=== PATIENT | female | born 1975 | race Caucasian/White ===

== ENCOUNTER 2021-02-20 13:08 | Emergency (ER) | payer OTHER, SELFPAY ==
[2021-02-20 13:25] VITALS: BP 142/74; PULSE 87; RESP 22; TEMP 36.5; O2SAT 96
[2021-02-20 13:47] VITALS: BP 142/74; PULSE 87; RESP 22; TEMP 36.5; O2SAT 96
--- NOTE | 2021-02-20 14:05 | ED.URI ---
HPI - URI/Sore Throat General Chief Complaint: Upper Respiratory Infection Stated Complaint: sinus infection Time Seen by Provider: 02/20/21 13:43 Source: patient and RN notes reviewed Mode of arrival: ambulatory Limitations: no limitations History of Present Illness HPI Narrative: Patient presents today with a 2-day history of nasal congestion, sinus pressure, rhinorrhea, productive cough, headache, chills and sweats with subjective fever, sore throat, shortness of breath. Patient has history of emphysema with chronic cough and states her cough is just much worse than it normally is. She does have a rescue inhaler that she uses as well as a nebulizer machine with albuterol, which do help for short periods of time. She has also taken 1 dose of Tylenol yesterday that helped slightly with her headache. Denies diarrhea, loss of taste or smell. She last vomited yesterday morning and has been able to keep down fluids since then. She has not tried to eat. MD elicited complaint: cough Related Data Home Medications Medication Instructions Recorded Confirmed albuterol sulfate 2 puff INHALATION Q4H PRN 02/20/21 02/20/21 cetirizine 10 mg PO DAILY 02/20/21 02/20/21 ergocalciferol (vitamin D2) 1,250 mcg PO WEEKLY 02/20/21 02/20/21 [Vitamin D2] hydroxyzine HCl 25 mg PO TID 02/20/21 02/20/21 naloxone [Narcan] 4 mg INTRANASAL PRN PRN 02/20/21 02/20/21 sertraline 50 mg PO DAILY 02/20/21 02/20/21 Allergies Allergy/AdvReac Type Severity Reaction Status Date / Time No Known Allergies Allergy Verified 02/20/21 13:46 Review of Systems Review of Systems: Narrative: CONSTITUTIONAL: + Body aches, chills, sweats, subjective fever EYES: Denies visual changes, redness, or discharge. ENT: + Congestion, rhinorrhea, sinus pressure, headache, right ear pain CARDIOVASCULAR: Denies chest pain, palpitations, or edema. RESPIRATORY: + Productive cough, shortness of breath GASTROINTESTINAL: Denies abdominal pain, diarrhea.+ Nausea and vomiting GENITOURINARY: Denies dysuria or hematuria. SKIN: Denies rash, itching, or wounds. MUSCULOSKELETAL: Denies back pain, joint pain, or myalgia. NEUROLOGIC: Denies numbness, tingling, or weakness.+ Headache PSYCH: Denies depression or anxiety. [facility] Past Medical History Medical History (Updated 02/20/21 @ 14:12 by Rianna Lynn, KNUCKLE BENDER, ) COPD (chronic obstructive pulmonary disease) Comments At time of signature, I have reviewed and agree with nursing past medical, surgical, social and family history unless otherwise noted. Please see nursing chart for further information. There is no relevant family history pertinent to the presenting complaint Exam Narrative: Exam Narrative: GENERAL: No-appearing, well-nourished, and in no acute distress. HEAD: Normocephalic, atraumatic. EYES: EOMI. No redness or drainage. Conjunctivae normal. ENT: Mucous membranes pink and moist. Nares congested. No rhinorrhea. Left TM normal. Right TM injected and bulging. Throat normal. Uvula midline. NECK: Normal AROM. Supple. No lymphadenopathy. CHEST: No respiratory distress. Decreased aeration throughout. No wheezing or rhonchi noted. Deep breaths elicit coughing episodes. HEART: Regular rate and rhythm. No murmur appreciated. Normal peripheral pulses. EXTREMITIES: Normal range of motion. No edema. SKIN: Warm, dry, no rash. Capillary refill normal. Normal skin turgor. NEURO: No focal deficits. Alert and oriented x3. Gait steady. PSYCH: Normal affect. No signs of depression or anxiety. Course Vital Signs Vital signs: Vital Signs Temperature 97.7 F 02/20/21 13:25 Pulse Rate 87 02/20/21 13:25 Respiratory Rate 22 H 02/20/21 13:25 Blood Pressure 142/74 H 02/20/21 13:25 Pulse Oximetry 96 02/20/21 13:25 Temperature 97.7 F 02/20/21 13:47 Pulse Rate 87 02/20/21 13:47 Respiratory Rate 22 H 02/20/21 13:47 Blood Pressure 142/74 H 02/20/21 13:47 Pulse Oximetry 96 02/20/21 13:47 Revie
[2021-02-21 19:39] LABS: SARS-CoV-2 RNA PCR Negative
== END 2021-02-20 14:15 | disposition home or self-care (01) ==
PROVIDERS: Emergency Provider Nurse Practitioner
DX: J44.1 Chronic obstructive pulmonary disease with (acute) exacerbation (principal); H66.91 Otitis media, unspecified, right ear; J06.9 Acute upper respiratory infection, unspecified; Z20.822 Contact with and (suspected) exposure to COVID-19
CPT/HCPCS: 87426; 99213; C9803; G0463; U0003; U0005

== ENCOUNTER 2021-03-12 17:50 | Emergency (ER) | payer OTHER, SELFPAY ==
--- NOTE | ~2021-03-12 | XR_ITS ---
EXAMINATION: XR toe 3rd RT min 2V DATE: 03/12/2021 18:47 INDICATION: Right third toe injury. TECHNIQUE: 3 views of right third toe were obtained. COMPARISON: None. FINDINGS: There is a nondepressed comminuted fracture of head of third proximal phalanx. Joint spaces are normal. IMPRESSION: 1. Nondisplaced comminuted fracture of head of third proximal phalanx. Reviewed, dictated and finalized at location A.
[2021-03-12 18:20] VITALS: BP 131/79; PULSE 70; RESP 18; TEMP 36.7; O2SAT 98
--- NOTE | 2021-03-12 18:57 | ED.LOWEXIN ---
HPI - Extremity Injury (Lower) General Chief Complaint: Extremity Injury, Lower Stated Complaint: third toe right foot injury Time Seen by Provider: 03/12/21 18:46 Source: patient, RN notes reviewed and police Mode of arrival: ambulatory Limitations: no limitations History of Present Illness HPI Narrative: 45-year-old female presents to express care with complaints of injury to her right third toe when she was climbing out of the foot of the bed and hit her toe on the wall 3 days ago.Patient has swelling and bruising to her right third toe with pain on palpation, She states that she has been taking Ibuprofen, Tylenol and Aspirin for her discomfort and has applied ice to her toe. Patient has increase pain with any attempt to move toe, denies any tingling or numbness to her toe or foot, no injury to her nail bed. MD complaint: other (hit the wall) Onset (ago): day(s) (3) Injury: Right: toes (Right third) Related Data Home Medications Medication Instructions Recorded Confirmed cetirizine 10 mg PO DAILY 02/20/21 03/12/21 ergocalciferol (vitamin D2) 1,250 mcg PO WEEKLY 02/20/21 03/12/21 [Vitamin D2] hydroxyzine HCl 25 mg PO TID 02/20/21 03/12/21 sertraline 50 mg PO DAILY 02/20/21 03/12/21 mirtazapine 15 mg PO DAILY 03/12/21 03/12/21 Allergies Allergy/AdvReac Type Severity Reaction Status Date / Time No Known Allergies Allergy Verified 03/12/21 18:39 Review of Systems Review of Systems: Narrative: CONSTITUTIONAL: Denies fever, chills, or sweats. EYES: Denies visual changes, redness, or discharge. ENT: Denies rhinorrhea, congestion, sore throat, or otalgia. CARDIOVASCULAR: Denies chest pain, palpitations, or edema. RESPIRATORY: Denies cough or dyspnea. GASTROINTESTINAL: Denies abdominal pain, nausea, vomiting, or diarrhea. GENITOURINARY: Denies dysuria or hematuria. SKIN: Denies rash or itching. MUSCULOSKELETAL: Denies back pain, positive for pain right third toe joint pain, or myalgia. NEUROLOGIC: Denies headache, numbness, or weakness. PSYCHIATRIC: Denies anxiety or depression. All systems reviewed & are unremarkable except as noted in HPI and below PMFSH Past Medical History Medical History (Updated 03/17/21 @ 12:43 by Jo-Ann Dowling NP) Anxiety COPD (chronic obstructive pulmonary disease) Environmental allergies Surgical History Surgical History (Updated 03/17/21 @ 12:32 by Jo-Ann Dowilng NP) Previous section Family History Family History (Updated 03/17/21 @ 12:33 by Jo-Ann Dowling NP) Mother Hypertension Other Cerebrovascular accident Heart disease Hx of brain cancer Social History Social History (Updated 03/17/21 @ 12:37 by Jo-Ann Dowling NP) Smoking packs per day: 0.25 Smoking cigarettes per day: 5.0 Smoking status: Current every day smoker Tobacco type: cigarettes Alcohol intake: never Substance use: former Substance use type: methamphetamine Last use: 5 years Living arrangements: with family Gender identity (if verbalized by the patient): Female Comments At time of signature, agree with nursing past medical, surgical, social and family history. There is no relevant family history pertinent to the presenting complaint Exam Narrative: Exam Narrative: GENERAL: Well-appearing, well-nourished, and in no acute distress. HEAD: Normocephalic, atraumatic. EYES: PERRLA and EOMI. ENT: Nares clear, no rhinorrhea or epistaxis. Mucous membranes moist. NECK: Supple.no lymphadenopathy CHEST: Decreased to auscultation. No respiratory distress.SAO2 98% on room air HEART: Regular rate and rhythm. No murmur heard. Normal peripheral pulses. ABDOMEN: Soft, nontender, nondistended, normal active bowel sounds. EXTREMITIES: Normal range of motion. No edema.with exception to right third toe which is swollen and bruised, sensation and circulation is intact SKIN: Warm, dry, no rash. NEURO: No focal deficits. Alert and oriented x3. Course Vital Signs Vital s
== END 2021-03-12 19:25 | disposition home or self-care (01) ==
PROVIDERS: Emergency Provider Registered Nurse
DX: S92.514A Nondisplaced fracture of proximal phalanx of right lesser toe(s), initial encounter for closed fracture (principal); X58.XXXA Exposure to other specified factors, initial encounter; J44.9 Chronic obstructive pulmonary disease, unspecified
CPT/HCPCS: 73660; 99214; G0463

== ENCOUNTER 2021-06-21 18:25 | Emergency (ER) | payer OTHER, SELFPAY ==
--- NOTE | ~2021-06-21 | XR_ITS ---
EXAMINATION: XR chest 2V DATE: 06/21/2021 19:00 INDICATION: One week of cough and fatigue TECHNIQUE: frontal and lateral views of the chest were obtained. COMPARISON: None FINDINGS: The lungs are clear with no focal airspace opacities, pulmonary edema, pleural effusion or pneumothor ax. The cardiomediastinal silhouette is normal. 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 IMPRESSION: 1. No acute cardiopulmonary disease. 2. 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 Recommend dedicated righ t shoulder radiographs and correlation with any prior outside imaging. Reviewed, dictated and finalized at location A. IMPRESSION: 1. No acute cardiopulmonary disease. 2. 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 Re commend dedicated right shoulder radiographs and correlation with any prior out side imaging.
[2021-06-21 18:30] VITALS: BP 114/76; PULSE 85; RESP 18; TEMP 36.9; O2SAT 98
--- NOTE | 2021-06-21 18:52 | ED.URI ---
HPI - URI/Sore Throat General Chief Complaint: Upper Respiratory Infection Stated Complaint: Congestion, fatigue, vomitting, headache Time Seen by Provider: 06/21/21 18:37 Source: patient and RN notes reviewed Mode of arrival: ambulatory Limitations: no limitations History of Present Illness HPI Narrative: Patient presents today with a 10-day history of cough, sweats and chills, shortness of breath and wheezing, chest congestion, rhinorrhea, intermittent nausea and vomiting. Patient is also requesting a refill of her albuterol inhaler. She has been taking cough and congestion medication with some relief. History of COPD and asthma. Upon symptoms beginning she was using her inhaler very frequently and has run out. 2 days prior to patient's symptoms beginning, patient's daughter started with similar symptoms. Patient has had her COVID-19 vaccine. MD elicited complaint: cough and nasal congestion Related Data Home Medications Medication Instructions Recorded Confirmed cetirizine 10 mg PO DAILY 02/20/21 06/21/21 ergocalciferol (vitamin D2) 1,250 mcg PO WEEKLY 02/20/21 03/12/21 [Vitamin D2] hydroxyzine HCl 25 mg PO TID 02/20/21 06/21/21 sertraline 50 mg PO DAILY 02/20/21 03/12/21 mirtazapine 15 mg PO DAILY 03/12/21 03/12/21 bupropion HCl 100 mg PO BID 06/21/21 06/21/21 lamotrigine 25 mg PO DAILY 06/21/21 06/21/21 omeprazole 20 mg PO DAILY 06/21/21 06/21/21 Allergies Allergy/AdvReac Type Severity Reaction Status Date / Time No Known Allergies Allergy Verified 03/12/21 18:39 Review of Systems Review of Systems: CONSTITUTIONAL: Denies body aches, fever. + Chills and sweats EYES: Denies visual changes, redness, or discharge. ENT: Denies sore throat, or otalgia. + Congestion, rhinorrhea CARDIOVASCULAR: Denies chest pain, palpitations, or edema. RESPIRATORY: + Cough, shortness of breath, wheezing GASTROINTESTINAL: Denies abdominal pain, or diarrhea.+ Nausea and vomiting GENITOURINARY: Denies dysuria or hematuria. SKIN: Denies rash, itching, or wounds. MUSCULOSKELETAL: Denies back pain, joint pain, or myalgia. NEUROLOGIC: Denies headache, numbness, tingling, or weakness. PSYCH: Denies depression or anxiety. [facility] Past Medical History Medical History Anxiety COPD (chronic obstructive pulmonary disease) Environmental allergies Surgical History Surgical History Previous section Family History Family History Mother Hypertension Other Cerebrovascular accident Heart disease Hx of brain cancer Social History Social History Smoking packs per day: 0.25 Smoking cigarettes per day: 5.0 Smoking status: Current every day smoker Tobacco type: cigarettes Alcohol intake: never Substance use: former Substance use type: methamphetamine Last use: 5 years Gender identity (if verbalized by the patient): Female Comments At time of signature, I have reviewed and agree with nursing past medical, surgical, social and family history unless otherwise noted. Please see nursing chart for further information. There is no relevant family history pertinent to the presenting complaint Exam Narrative: GENERAL: Mildly ill-appearing, well-nourished, and in no acute distress. HEAD: Normocephalic, atraumatic. EYES: EOMI. No redness or drainage. Conjunctivae normal. ENT: Mucous membranes pink and moist. Nares congested. No rhinorrhea. TMs normal bilaterally. Throat normal. Uvula midline. NECK: Normal AROM. Supple. No lymphadenopathy. CHEST: No respiratory distress. Inspiratory and expiratory wheezes throughout. Diminished in the bilateral bases HEART: Regular rate and rhythm. No murmur appreciated. Normal peripheral pulses. EXTREMITIES: Normal range of motion.
== END 2021-06-21 19:55 | disposition home or self-care (01) ==
PROVIDERS: Emergency Provider Nurse Practitioner
DX: J40 Bronchitis, not specified as acute or chronic (principal); Z20.822 Contact with and (suspected) exposure to COVID-19; F41.9 Anxiety disorder, unspecified; J44.9 Chronic obstructive pulmonary disease, unspecified; F17.210 Nicotine dependence, cigarettes, uncomplicated
CPT/HCPCS: 71046; 87426; 99213; C9803; G0463

== ENCOUNTER 2021-09-13 13:10 | Emergency (ER) | payer OTHER, SELFPAY ==
--- NOTE | ~2021-09-13 | XR_ITS ---
EXAMINATION: XR chest 2V DATE: 09/13/2021 13:45 INDICATION: Cough. Diminished breath sounds. TECHNIQUE: PA and lateral views of the chest were obtained. COMPARISON: Chest radiograph dated 06/21/2021 FINDINGS: The lungs remain clear with no focal airspace opacities, pulmonary edema, pleural effusion or pneumot horax. The cardiomediastinal silhouette is normal. Mild thoracic spondylosis. IMPRESSION: 1. No acute cardiopulmonary disease. Reviewed, dictated and finalized at location A.
[2021-09-13 13:24] VITALS: BP 132/75; PULSE 91; RESP 14; TEMP 37.1; O2SAT 96
--- NOTE | 2021-09-13 13:38 | ED.URI ---
HPI - URI/Sore Throat General Chief Complaint: Upper Respiratory Infection Stated Complaint: Cough Time Seen by Provider: 09/13/21 13:38 Source: patient and family History of Present Illness HPI Narrative: patient presents with a cough. no chest pain and no shortness of breath. cough and sinus congestion for the past week and half. no fever no other complains. MD elicited complaint: cough Related Data Home Medications Medication Instructions Recorded Confirmed sertraline 50 mg PO DAILY 02/20/21 09/13/21 bupropion HCl 100 mg PO BID 06/21/21 09/13/21 hydroxyzine HCl 1 mg PO QID 09/13/21 09/13/21 quetiapine 1 mg PO DAILY 09/13/21 09/13/21 Allergies Allergy/AdvReac Type Severity Reaction Status Date / Time No Known Allergies Allergy Verified 09/13/21 13:40 Review of Systems Review of Systems: CONSTITUTIONAL: Denies fever, chills, or sweats. EYES: Denies visual changes, redness, or discharge. ENT: Denies rhinorrhea, congestion, sore throat, or otalgia. CARDIOVASCULAR: Denies chest pain, palpitations, or edema. RESPIRATORY: Denies cough or dyspnea. GASTROINTESTINAL: Denies abdominal pain, nausea, vomiting, or diarrhea. GENITOURINARY: Denies dysuria or hematuria. SKIN: Denies rash or itching. MUSCULOSKELETAL: Denies back pain, joint pain, or myalgia. NEUROLOGIC: Denies headache, numbness, or weakness. PSYCHIATRIC: Denies anxiety or depression. [facility] Past Medical History Medical History Anxiety COPD (chronic obstructive pulmonary disease) Environmental allergies Surgical History Surgical History Previous section Family History Family History Mother Hypertension Other Cerebrovascular accident Heart disease Hx of brain cancer Social History Social History Smoking packs per day: 0.25 Smoking cigarettes per day: 5.0 Smoking status: Current every day smoker Tobacco type: cigarettes Alcohol intake: never Substance use: former Substance use type: methamphetamine Last use: 5 years Gender identity (if verbalized by the patient): Female Comments At time of signature, agree with nursing past medical, surgical, social and family history. There is no relevant family history pertinent to the presenting complaint Exam Narrative: GENERAL: Well-appearing, well-nourished, and in no acute distress. HEAD: Normocephalic, atraumatic. EYES: PERRLA and EOMI. ENT: Nares clear, no rhinorrhea or epistaxis. Mucous membranes moist. NECK: Supple. CHEST: Clear to auscultation. No respiratory distress. Lung sounds diminished throughout all 4 lobes HEART: Regular rate and rhythm. No murmur heard. Normal peripheral pulses. ABDOMEN: Soft, nontender, nondistended, normal active bowel sounds. EXTREMITIES: Normal range of motion. No edema. SKIN: Warm, dry, no rash. NEURO: No focal deficits. Alert and oriented x3. Hawley Coma Scale Eye Opening: Spontaneous 4 Hawley Coma Scale Motor: Obeys Commands 6 Hawley Coma Scale Verbal: Oriented 5 Hawley Coma Scale Total 15 Course Vital Signs Vital signs: Vital Signs Temperature 37.1 C 09/13/21 13:24 Pulse Rate 91 09/13/21 13:24 Respiratory Rate 14 09/13/21 13:24 Blood Pressure 132/75 09/13/21 13:24 Pulse Oximetry 96 09/13/21 13:24 Temperature 37.1 C 09/13/21 13:24 Pulse Rate 91 09/13/21 13:24 Respiratory Rate 14 09/13/21 13:24 Blood Pressure 132/75 09/13/21 13:24 Pulse Oximetry 96 09/13/21 13:24 Addressed elevated BP today. Today's blood pressure higher than recommended range. Discussed importance of follow -up with PCP and possible supervisor intermediates effects/cardiovascular events related to HTN. Currently patient denies headache, dizziness, vision changes, CP or shortness of sloan
== END 2021-09-13 14:18 | disposition home or self-care (01) ==
PROVIDERS: Emergency Provider Nurse Practitioner Family
DX: J40 Bronchitis, not specified as acute or chronic (principal); J32.9 Chronic sinusitis, unspecified; F17.210 Nicotine dependence, cigarettes, uncomplicated; J44.9 Chronic obstructive pulmonary disease, unspecified; F41.9 Anxiety disorder, unspecified
CPT/HCPCS: 71046; 99213; G0463

== ENCOUNTER 2021-11-19 13:05 | Emergency (ER) | payer OTHER, SELFPAY ==
[2021-11-19 13:22] VITALS: BP 115/67; PULSE 78; RESP 16; TEMP 37.4; O2SAT 98
--- NOTE | 2021-11-19 13:33 | ED.URI ---
HPI - URI/Sore Throat General Chief Complaint: Upper Respiratory Infection Stated Complaint: gonsales/chills/nausea/fever/aches Time Seen by Provider: 11/19/21 13:33 Source: patient and family History of Present Illness HPI Narrative: PATIENT PRESENTS WITH HEADACHE, BODY ACHES, CHILLS AND COUGH WELL SORE THROAT FOR THE PAST 4 DAYS. NO SHORTNESS OF BREATH AND NO CHEST PAIN NORMALLY HEALTHY INDIVIDUALS. MD elicited complaint: sore throat and nasal congestion Related Data Home Medications Medication Instructions Recorded Confirmed sertraline 50 mg PO DAILY 02/20/21 09/13/21 bupropion HCl 100 mg PO BID 06/21/21 09/13/21 hydroxyzine HCl 1 mg PO QID 09/13/21 09/13/21 quetiapine 1 mg PO DAILY 09/13/21 09/13/21 cetirizine 10 mg PO DAILY 11/19/21 11/19/21 fluticasone propion-salmeterol 1 inh INHALATION Q12H 11/19/21 11/19/21 [Wixela Inhub] omeprazole 20 mg PO DAILY 11/19/21 11/19/21 Allergies Allergy/AdvReac Type Severity Reaction Status Date / Time No Known Allergies Allergy Verified 09/13/21 13:40 Review of Systems Review of Systems: CONSTITUTIONAL: Denies chills, or sweats. Reports fever and generalized body aches EYES: Denies visual changes, redness, or discharge. ENT: Denies otalgia. Reports nasal congestion runny nose and sore throat CARDIOVASCULAR: Denies chest pain, palpitations, or edema. RESPIRATORY: Denies dyspnea. Reports occasional cough GASTROINTESTINAL: Denies abdominal pain, nausea, vomiting, or diarrhea. GENITOURINARY: Denies dysuria or hematuria. SKIN: Denies rash or itching. MUSCULOSKELETAL: Denies back pain, joint pain, or myalgia. Reports generalized body aches NEUROLOGIC: Denies headache, numbness, or weakness. PSYCHIATRIC: Denies anxiety or depression. [facility] Past Medical History Medical History Anxiety COPD (chronic obstructive pulmonary disease) Environmental allergies Surgical History Surgical History Previous section Family History Family History Mother Hypertension Other Cerebrovascular accident Heart disease Hx of brain cancer Social History Social History Smoking packs per day: 0.25 Smoking cigarettes per day: 5.0 Smoking status: Current every day smoker Tobacco type: cigarettes Alcohol intake: never Substance use: former Substance use type: methamphetamine Last use: 5 years Gender identity (if verbalized by the patient): Female Comments At time of signature, agree with nursing past medical, surgical, social and family history. There is no relevant family history pertinent to the presenting complaint Exam Narrative: The patient is a well-developed, well-nourished in no acute distress. SKIN: Skin is warm and dry without erythema, swelling or exudate. There is good turgor. No tenting. HEAD: Atraumatic. Normocephalic. No temporal or scalp tenderness. EYES: Moist and bright. Sclera and conjunctivae normal. No discharge. PERRLA. Extraocular motions intact. Gross visual acuity intact. EARS: Pinna is normal shape and contour. Clear external auditory canals. TM pearly dawkins with good cone of light, no erythema or suppuration. Bilateral cerumen noted no gross hearing deficit. NOSE: pink, moist mucosa with good air movement. Clear rhinorrhea without nasal flaring. Septum midline. Mouth: moist mucous membranes. THROAT; mild erythema noted to posterior oropharynx with moderate postnasal drainage. Without exudate or ulceration.. Uvula midline. Normal movement of soft palate. NECK: Supple and nontender with full range of motion without discomfort. No meningeal signs. LUNGS: Equal and bilateral breath sounds without wheezes, rales or rhonchi. CHEST: The chest wall is without retractions or use of accessory muscles.
== END 2021-11-19 14:13 | disposition home or self-care (01) ==
PROVIDERS: Emergency Provider Nurse Practitioner Family
DX: J06.9 Acute upper respiratory infection, unspecified (principal); J44.9 Chronic obstructive pulmonary disease, unspecified; F41.9 Anxiety disorder, unspecified
CPT/HCPCS: 87426; 87804; 99213; C9803; G0463

== ENCOUNTER 2023-08-02 12:57 | Emergency (ER) | payer OTHER, SELFPAY ==
[2023-08-02 13:11] VITALS: BP 121/64; PULSE 92; RESP 16; TEMP 36.8; O2SAT 97
--- NOTE | 2023-08-02 13:40 | ED.URI ---
HPI - URI/Sore Throat General Chief Complaint: Upper Respiratory Infection Stated Complaint: headache/aches/fatigue Time Seen by Provider: 08/02/23 13:41 Source: patient, RN notes reviewed and old records reviewed Mode of arrival: ambulatory Limitations: no limitations History of Present Illness HPI Narrative: 47-year-old female presents with concerns for COVID, boyfriend tested positive this morning. Patient reports cough and wheezing, currently out of albuterol. Denies fevers. Reports generalized body aches and fatigue Related Data Allergies Allergy/AdvReac Type Severity Reaction Status Date / Time No Known Allergies Allergy Verified 09/13/21 13:40 Review of Systems Review of Systems: All systems reviewed & are unremarkable except as noted in HPI and below Constitutional: Constitutional: Reports as per HPI, Reports chills and Reports fatigue Eyes: Eyes: Reports no additional eye complaints ENT: Reports as per HPI Cardiovascular: Cardiovascular: Reports no additional cardiovascular complaints, Denies chest pain and Denies dyspnea Respiratory: Respiratory: Reports as per HPI, Denies chest congestion, Reports cough and Denies dyspnea Gastrointestinal: Gastrointestinal: Reports no additional gastrointestinal complaints, Denies abdominal pain, Denies nausea and Denies vomiting Musculoskeletal: Musculoskeletal: Reports no additional musculoskeletal complaints Integumentary/Breasts: Skin/Breast: Reports system reviewed and no additional complaints, except as docu Neurologic: Reports system reviewed and no additional complaints, except as documented Psychiatric: Psychiatric: Reports no additional psychiatric complaints Allergic/Immunologic: Allergic/Immunologic: Reports no additional allergic/immunologic complaints PMFSH Past Medical History Medical History Anxiety COPD (chronic obstructive pulmonary disease) Environmental allergies Surgical History Surgical History Previous section Family History Family History Mother Hypertension Other Cerebrovascular accident Heart disease Hx of brain cancer Social History Social History Smoking packs per day: 0.25 Smoking cigarettes per day: 5.0 Smoking status: Current every day smoker Tobacco type: cigarettes Alcohol intake: never Substance use: former Substance use type: methamphetamine Last use: 5 years Living arrangements: with family Gender identity (if verbalized by the patient): Female Comments At the time of my signature, I reviewed and agree with the nursing past medical, surgical, social, and family history. There is no relevant family history pertinent to the patient complaint. Exam Const: General: cooperative, healthy appearing, no acute distress, well developed, alert, poor hygiene, uncomfortable and well nourished Nutritional Appearance: well nourished and obese Orientation/consciousness: patient oriented x3 Limitations: no limitations HENMT: Head: normal to inspection Ears: hearing grossly normal bilaterally and external ears normal Face/Nose/Sinus: Normal external nose present, Normal nares present, Normal nasal mucous membranes and turbinates present, normal facial exam and face symmetric Face and sinus: normal facial exam and face symmetric Mouth: Yes Normal oral and palatal mucosa present, Yes lip normal and Yes moist mucous membranes Throat: posterior oropharynx normal and uvula midline Eyes: General: appearance normal, both eyes and all related structures Alignment and Position: alignment normal Periorbital: periorbital findings normal Pupils: Equal, round and reactive pupils present EOM: EOMs intact bilaterally Neck: Neck: normal visual inspection, full ROM, no lymphadenopathy and no men
== END 2023-08-02 14:07 | disposition home or self-care (01) ==
PROVIDERS: Emergency Provider Nurse Practitioner
DX: U07.1 COVID-19 (principal); J44.9 Chronic obstructive pulmonary disease, unspecified; F17.210 Nicotine dependence, cigarettes, uncomplicated
CPT/HCPCS: 87426; 99213; C9803; G0463

== ENCOUNTER 2023-11-19 11:51 | Emergency (ER) | payer OTHER, SELFPAY ==
[2023-11-19 11:54] VITALS: BP 130/72; PULSE 91; RESP 16; TEMP 36.8; O2SAT 97
--- NOTE | 2023-11-19 12:15 | ED.URI ---
HPI - URI/Sore Throat General Chief Complaint: Upper Respiratory Infection Stated Complaint: congestion Time Seen by Provider: 11/19/23 12:15 Source: patient Mode of arrival: ambulatory Limitations: no limitations History of Present Illness HPI Narrative: 48 yo F presents with c/o cough, chest congestion for 1 wk. SOB x 3 days. tried to stop smoking but started up again this past week. Out of inhaler. Also reports sinus congestion/pressure, PND for 1 month. Afebrile. All systems reviewed and negative except as noted above. Related Data Allergies Allergy/AdvReac Type Severity Reaction Status Date / Time No Known Allergies Allergy Verified 09/13/21 13:40 Review of Systems Review of Systems: CONSTITUTIONAL: Denies fever, chills, or sweats. EYES: Denies visual changes, redness, or discharge. ENT: Reports rhinorrhea, congestion. Denies sore throat, or otalgia. CARDIOVASCULAR: Denies chest pain, palpitations, or edema. RESPIRATORY: Reports cough, chest congestion. Denies dyspnea. GASTROINTESTINAL: Denies abdominal pain, nausea, vomiting, or diarrhea. GENITOURINARY: Denies dysuria or hematuria. SKIN: Denies rash or itching. MUSCULOSKELETAL: Denies back pain, joint pain, or myalgia. NEUROLOGIC: Denies headache, numbness, or weakness. PSYCHIATRIC: Denies anxiety or depression. All other systems reviewed are negative, except as documented in HPI. [facility] Past Medical History Medical History Anxiety COPD (chronic obstructive pulmonary disease) Environmental allergies Surgical History Surgical History Previous section Family History Family History Mother Hypertension Other Cerebrovascular accident Heart disease Hx of brain cancer Social History Social History Smoking packs per day: 0.25 Smoking cigarettes per day: 5.0 Smoking status: Current every day smoker Tobacco type: cigarettes Alcohol intake: never Substance use: former Substance use type: methamphetamine Last use: 5 years Living arrangements: with family Gender identity (if verbalized by the patient): Female Comments At time of signature, agree with nursing past medical, surgical, social and family history. There is no relevant family history pertinent to the presenting complaint. Exam Narrative: GENERAL: This is a well-nourished, well-developed patient, ill-appearing but in no acute distress. HEAD: normocephalic, atraumatic. EYES: PERRL. Sclera clear/white. Vision is grossly intact. EARS: External ears normal, auditory canals clear and without drainage, TMs normal without perforation. Hearing grossly intact. NOSE: External nose normal with clear nasal drainage, erythema and swelling to bilateral nares, moderate congestion, maxillary sinus tenderness on palpation. THROAT: Mucous membranes moist, erythema with postnasal drainage. NECK: Neck supple, non-tender without lymphadenopathy, masses or thyromegaly. CARDIOVASCULAR: Regular rate and rhythm without murmurs, gallops, or rubs. RESPIRATORY: Coarse lung sounds throughout all lung shah, wheezing on expiration upper lung shah. Breath sounds equal bilaterally. No rales, or rhonchi. SKIN: warm, Dry, intact with no suspicious lesions or rash, good texture and turgor. NEURO: awake, alert, and oriented to person, place and time. There were no obvious focal neurologic abnormalities. EXTREMITIES: No joint tenderness, effusion, or edema noted. Course Course Level of Care: Express Care Visit Reevaluation(s) Reevaluation #1: Patient reports improvement after DuoNeb. Continues to have mild coarse lung sounds throughout all lung shah. Vital Signs Vital signs: Vital Signs Temperature 36.8 C 11/19/23 11:54 Pulse Rate 91 11/19/23 11:54 Re
[2023-11-19] MEDS: IPRATROPIUM BR 0.02% INH SOLN 0.5 MG/2.5 ML VIAL INHALATION (12:25)
[2023-11-19] MEDS: ALBUTEROL SULFATE NEB 2.5 MG/3 ML INH INHALATION (12:25)
[2023-11-19 12:48] VITALS: PULSE 76; RESP 16; O2SAT 95
== END 2023-11-19 12:50 | disposition home or self-care (01) ==
PROVIDERS: Emergency Provider Nurse Practitioner Family
DX: J20.9 Acute bronchitis, unspecified (principal); J01.90 Acute sinusitis, unspecified; B96.89 Other specified bacterial agents as the cause of diseases classified elsewhere; J44.9 Chronic obstructive pulmonary disease, unspecified; F17.210 Nicotine dependence, cigarettes, uncomplicated
CPT/HCPCS: 94640; 99213; G0463

== ENCOUNTER 2024-09-29 12:18 | Emergency (ER) | payer OTHER, SELFPAY ==
--- NOTE | ~2024-09-29 | XR_ITS ---
Clinical Indication: Shortness of breath PA and lateral views of the chest: Comparison: 09/13/2021 Findings: The lungs are clear, without evidence of focal consolidation or pleural effusion. Cardiome diastinal silhouette is within normal limits. Bones and soft tissues are unremarkable. Impression: Normal chest. Reviewed, dictated and finalized at location . D STITCH MACHINE OPERATOR Impression: Normal chest.
[2024-09-29 12:23] VITALS: BP 150/78; PULSE 94; RESP 18; TEMP 36.4; O2SAT 98
--- NOTE | 2024-09-29 12:25 | ED_ITS ---
HPI - URI/Sore Throat General Chief Complaint: Upper Respiratory Infection Stated Complaint: Shortness of Breath/Congestion Time Seen by Provider: 09/29/24 12:25 Source: patient Mode of arrival: ambulatory Limitations: no limitations History of Present Illness HPI Narrative: 48-year-old female presents with complaint of URI symptoms for 2 weeks. Cough, chest congestion, sinus congestion, sinus pressure, fatigue. Patient reports worsening of all symptoms. Short of breath starting yesterday. Afebrile. Patient not taking any [id number] medications to treat her symptoms. All systems reviewed and negative except as noted above. Related Data Home Medications Medication Instructions Recorded Confirmed albuterol sulfate 90 mcg/actuation inhalation 09/29/24 aerosol inhaler Allergies Allergy/AdvReac Type Severity Reaction Status Date / Time No Known Allergies Allergy Verified 09/29/24 12:22 Review of Systems Review of Systems: CONSTITUTIONAL: Denies fever, chills, or sweats. reports fatigue. EYES: Denies visual changes, redness, or discharge. ENT: Reports rhinorrhea, congestion, sinus pressure, sinus headaches. Denies sore throat, or otalgia. CARDIOVASCULAR: Denies chest pain, palpitations, or edema. RESPIRATORY: reports cough and dyspnea with exertion. GASTROINTESTINAL: Denies abdominal pain, nausea, vomiting, or diarrhea. GENITOURINARY: Denies dysuria or hematuria. SKIN: Denies rash or itching. MUSCULOSKELETAL: Denies back pain, joint pain, or myalgia. NEUROLOGIC: Denies headache, numbness, or weakness. PSYCHIATRIC: Denies anxiety or depression. All other systems reviewed are negative, except as documented in HPI. [facility] Past Medical History Medical History Anxiety COPD (chronic obstructive pulmonary disease) Environmental allergies Surgical History Surgical History Previous section Family History Family History Mother Hypertension Other Cerebrovascular accident Heart disease Hx of brain cancer Social History Social History Smoking packs per day: 0.25 Smoking cigarettes per day: 5.0 Smoking status: Current every day smoker Tobacco type: cigarettes Alcohol intake: never Substance use: former Substance use type: methamphetamine Last use: 5 years Living arrangements: with family Gender identity (if verbalized by the patient): Female Exam Narrative: GENERAL: This is a well-nourished, well-developed patient, in no apparent distress. HEAD: normocephalic, atraumatic. EYES: PERRL. Sclera clear/white. Vision is grossly intact. EARS: External ears normal, auditory canals clear and without drainage, TMs normal without perforation. Hearing grossly intact. NOSE: External nose normal with Purulent nasal drainage, erythema and swelling to bilateral nares, bilateral maxillary sinus tenderness on palpation THROAT: Mucous membranes moist, posterior pharynx clear. NECK: Neck supple, non-tender without lymphadenopathy, masses or thyromegaly. CARDIOVASCULAR: Regular rate and rhythm without murmurs, gallops, or rubs. RESPIRATORY: Decreased throughout all lung shah. Breath sounds equal bilaterally. No wheezes, rales, or rhonchi. SKIN: warm, Dry, intact with no suspicious lesions or rash, good texture and turgor. NEURO: awake, alert, and oriented to person, place and time. There were no obvious focal neurologic abnormalities. EXTREMITIES: No joint tenderness, effusion, or edema noted. Course Course Level of Care: Express Care Visit Vital Signs Vital signs: Vital Signs Temperature 36.4 C 09/29/24 12:23 Pulse Rate 94 09/29/24 12:23 Respiratory Rate 18 09/29/24 12:23 Blood Pressure 150/78 H 09/29/24 12:23 Pulse Oximetry 98 09/29/24 12:23 Oxygen Delivery Room Air 09/29/24 12:23 Temperature 36.4 C 09/29/24 12:23 Pulse Rate 94 09/29/24 12:23 Respiratory Rate 18 09/29/24 12:23 Blood Pressure 150/78 H 09/29/24 12:23 Pulse Oximetry 98 09/29/24 12:23 Oxygen Delivery Room Air 09/29/24 12:23 Reviewed MDM - URI/Sore Throat MDM Narrative Medical decision making narrative: chest x-ray negative for pneumonia. Will treat patient with antibiotic for bacterial sinusitis due to duration of symptoms and exam findings. Patient is aware of diagnosis, understands and agrees to treatment plan. Anticipatory guidance given. Patient agrees to follow-up as directed and is a mcmahan of reasons to seek care at the emergency department. Portions of this record may have been created with voice recognition software Imaging Data My impression: agree with radiologist Radiologist's impression: Clinical Indication: Shortness of breath PA and lateral views of the chest: Comparison: 09/13/2021 Findings: The lungs are clear, without evidence of focal consolidation or pleural effusion. Cardiomediastinal silhouette is within normal limits. Bones and soft tissues are unremarkable. Impression: Normal chest. Discharge Plan Discharge Clinical Impression: Acute bacterial sinusitis Patient Disposition: Home, Self-Care Condition: Stable Instructions: Antibiotic Form, Sinusitis (ED) Additional Instructions: your chest x-ray was normal today. Take medications as prescribed. Take antibiotic until gone. Drink at least 64 oz of water a day. Follow-up your primary care physician as needed. Prescriptions: New benzonatate 200 mg capsule 200 mg PO TID PRN (Reason: cough) Qty: 20 0RF prednisone 20 mg tablet 40 mg PO DAILY 5 Days Qty: 10 0RF amoxicillin 875 mg tablet 875 mg PO Q12H 7 Days Qty: 14 0RF fluticasone propionate [Flonase Allergy Relief] 50 mcg/actuation spray,[employer] 1 spray intranasal BID Qty: 16 0RF Rx Instructions: administer into each nostril loratadine [Claritin] 10 mg tablet 10 mg PO DAILY Qty: 30 0RF No Action albuterol sulfate 90 mcg/actuation HFA aerosol inhaler INHALATION Follow-up/Referrals: UNKNOWN,DOCTOR [Non-Staff] - Time of Disposition: 12:57
== END 2024-09-29 13:00 | disposition home or self-care (01) ==
PROVIDERS: Emergency Provider Nurse Practitioner Family
DX: J01.90 Acute sinusitis, unspecified (principal); B96.89 Other specified bacterial agents as the cause of diseases classified elsewhere; F17.210 Nicotine dependence, cigarettes, uncomplicated
CPT/HCPCS: 71046; 99213; G0463

== ENCOUNTER 2024-11-21 13:42 | Emergency (ER) | payer OTHER, SELFPAY ==
[2024-11-21 13:51] VITALS: BP 133/80; PULSE 96; RESP 18; TEMP 37.6; O2SAT 96
--- NOTE | 2024-11-21 14:42 | ED.URI ---
HPI - URI/Sore Throat General Chief Complaint: Upper Respiratory Infection Stated Complaint: Chest Congeation/Cough Time Seen by Provider: 11/21/24 14:42 Source: patient and RN notes reviewed Mode of arrival: ambulatory Limitations: no limitations History of Present Illness HPI Narrative: 49-year-old female presents with concern for cough, wheezing, shortness of breath. Reports she was treated in September for the symptoms but she never fully recovered. Reports she did not get an albuterol inhaler at that time and so she got an [id number] inhaler that she has ran out of. She denies fever. She does not have a primary care doctor MD elicited complaint: cough Related Data Home Medications ?Medication ?Instructions ?Recorded ?Confirmed ?Last Taken ?Type albuterol sulfate 90 mcg/actuation inhalation 09/29/24 Unknown History aerosol inhaler Allergies Allergy/AdvReac Type Severity Reaction Status Date / Time No Known Allergies Allergy Verified 11/21/24 14:17 Review of Systems Review of Systems: CONSTITUTIONAL: Denies malaise, chills, sweats, or fever. EYES: Denies visual changes, redness, or discharge. ENT: Denies rhinorrhea, congestion, sinus pain, otalgia and sore throat. CARDIOVASCULAR: Denies chest pain, palpitations, or edema. RESPIRATORY: Reports cough, wheezing, dyspnea. GASTROINTESTINAL: Denies abdominal pain, nausea, vomiting, diarrhea SKIN: Denies rash or itching. MUSCULOSKELETAL: Denies myalgia. NEUROLOGIC: Denies headache. All systems reviewed & are unremarkable except as noted in HPI and below PMFSH Past Medical History Medical History Anxiety COPD (chronic obstructive pulmonary disease) Environmental allergies Surgical History Surgical History Previous section Family History Family History Mother Hypertension Other Cerebrovascular accident Heart disease Hx of brain cancer Social History Social History Smoking packs per day: 0.25 Smoking cigarettes per day: 5.0 Smoking status: Current every day smoker Tobacco type: cigarettes Alcohol intake: never Substance use: former Substance use type: methamphetamine Last use: 5 years Living arrangements: with family Gender identity (if verbalized by the patient): Female Comments At time of signature, agree with nursing past medical, surgical, social and family history. There is no relevant family history pertinent to the presenting complaint Exam Narrative: GENERAL: Well-appearing, well-nourished, and in no acute distress. HEAD: Normocephalic EYES: PERRLA, conjunctivae clear ENT: Nares clear, turbinates edematous and erythematous, clear discharge. Mucous membranes moist. TM pearly levy with dull light reflex bilaterally; no tragal tenderness. Oropharynx not erythematous without lesions. Tonsils not enlarged and without exudate, no drooling, no hoarseness, no trismus, uvula midline. NECK: Supple. No lymphadenopathy CHEST: Scattered wheeze, breath sounds equal. No rhonchi, rales, or stridor. No respiratory distress, speaks in full sentences. Cough noted HEART: Regular rate and rhythm. No murmur heard. SKIN: Warm, dry, no rash. NEURO: Alert and oriented x3. PSYCH: Normal mood and affect Course Course Emergency Course: Patient is aware of diagnosis, understands and agrees to treatment plan. Anticipatory guidance given. Patient agrees to follow-up as directed and is aware of reasons to seek care at the emergency department. Portions of this record may have been created with voice recognition software Level of Care: Express Care Visit Vital Signs Vital signs: Vital Signs Temperature 99.6 F 11/21/24 13:51 Pulse Rate 96 11/21/24 13:51 Respiratory Rate 18 11/21/24 13:51 Blood Pressure 133/80 11/21/24 13:51 Pulse Oximetry 96 11/21/24 13:51 Oxygen Delivery Room Air 11/21/24 13:51 Temperature 99.6 F 11/21/24 13:51 Pulse Rate 96 11/21/24 13:51 Respiratory Rate 18 11/21/24 13:51 Blood Pressure 133/80 11/21/24 13:51 Pulse Oximetry 96 11/21/24 13:51 Oxygen Delivery Room Air 11/21/24 13:51 Reviewed. MDM - URI/Sore Throat MDM Narrative Medical decision making narrative: Differential diagnosis considered: Parker virus, strep pharyngitis, allergic rhinitis, upper respiratory tract infection, sinusitis, rhinosinusitis, nasopharyngitis. viral pharyngitis, otitis media, otitis externa, pneumonia, bronchitis, viral cough syndrome, viral syndrome, and influenza. Exam findings show no acute concerns or changes; patient is non-toxic appearing and is in no distress. Patient is appropriate for outpatient treatment and follow-up. Lab Data Attestation: I reviewed the patient's lab results. Critical Care Time Critical Care Time Critical Care Time: No Discharge Plan Discharge Clinical Impression: Asthma exacerbation Patient Disposition: Home, Self-Care Condition: Stable Instructions: Antibiotic Form, Asthma (ED) Additional Instructions: Take medicines as directed. Visit your primary care doctor if: You have wheezing, shortness of breath, or a cough even if taking medicine to prevent attacks. You have thickening of sputum. Your sputum changes from clear or white to yellow, green, levy, or bloody. You have any problems that may be related to the medicines you are taking (such as a rash, itching, swelling, or trouble breathing). You are using a reliever medicine more than 2 to 3 times per week. Visit the ER if: You are short of breath even at rest or when doing very little physical activity. You develop difficulty eating, drinking, or talking due to asthma symptoms. You have chest pain or you feel that your heart is beating fast. You are lightheaded, dizzy, faint or have bluish lips or fingernails. You have a fever or persistent symptoms for more than 2 to 3 days or symptoms suddenly get worse. You seem to be getting worse and are unresponsive to treatment during an asthma attack. Patient Language: Paraguayan Prescriptions: New azithromycin [Zithromax Z-Keron] 250 mg tablet See Rx Instructions .ROUTE .COMPLEX Qty: 6 0RF Rx Instructions: take 500 mg today (day 1), then 250 mg for 4 days (days 2-5) prednisone 50 mg tablet 50 mg PO DAILY 5 Days Qty: 5 0RF albuterol sulfate 90 mcg/actuation HFA aerosol inhaler 2 puff INHALATION QID PRN (Reason: shortness of breath or wheezing) Qty: 8.5 1RF No Action albuterol sulfate 90 mcg/actuation HFA aerosol inhaler INHALATION fluticasone propionate [Flonase Allergy Relief] 50 mcg/actuation spray,suspension 1 spray intranasal BID Qty: 16 0RF Rx Instructions: administer into each nostril loratadine [Claritin] 10 mg tablet 10 mg PO DAILY Qty: 30 0RF Follow-up/Referrals: UNKNOWN,DOCTOR [Primary Care Provider] - Time of Disposition: 14:52
== END 2024-11-21 14:58 | disposition home or self-care (01) ==
PROVIDERS: Emergency Provider Nurse Practitioner
DX: J45.901 Unspecified asthma with (acute) exacerbation (principal); F17.210 Nicotine dependence, cigarettes, uncomplicated; J44.9 Chronic obstructive pulmonary disease, unspecified
CPT/HCPCS: 99213; G0463